=== PATIENT | female | born 1970 | race Two or more races ===

== ENCOUNTER 2022-07-25 12:18 | Emergency (ER) | payer SELFPAY ==
[2022-07-25] MEDS ORDERED: Famotidine 20 MG/2 ML SDV IVPUSH ONE (12:25)
[2022-07-25] MEDS ORDERED: Alum Hydro/Mag Hydro/Simeth XS 15 ML, Lidocaine 2% 5 ML PO ONE ×2 (12:26)
[2022-07-25 13:02] LABS: CARBON DIOXIDE,CO2 26.3 mmol/L (21.0-32.0); POTASSIUM,K 3.6 mmol/L (3.5-5.1)
== END 2022-07-25 15:33 | disposition home or self-care (01) ==
LOC: MW.ED 12:18
DX: R07.89 Other chest pain (principal); I10 Essential (primary) hypertension; Z88.0 Allergy status to penicillin; Z88.2 Allergy status to sulfonamides
CPT/HCPCS: 36415; 71045; 80053; 83690; 84484; 85025; 85379; 85610; 85730; 93005; 96374; 99285; A9270; J3490; 93010; 99284